=== PATIENT | female | born 1970 | race Caucasian/White ===

== ENCOUNTER 2019-04-23 06:46 | Emergency (ER) | payer OTHER ==
[~2019-04-23] VITALS: Ht 165.1 cm; Wt 110.7 kg
[2019-04-23] MEDS ORDERED: LEVO-T25 MCG PO (07:09)
[2019-04-23] MEDS ORDERED: OMEPRAZOLE 20 M20 M1 PO (07:10)
[2019-04-23] MEDS ORDERED: MOBIC7.5 MG PO (07:11)
[2019-04-23] MEDS ORDERED: PROZAC10 M1 PO (07:11)
[2019-04-23] MEDS ORDERED: APAP650 PO (07:11)
[2019-04-23 07:42] LABS: HEMATOCRIT 32.4 % (37.0-47.0); HEMOGLOBIN 10.1 gm/dL (12.0-15.0); MCH 24.1 pg (26.0-34.0); MCHC 31.1 g/dL (28.0-37.0); MCV 77.4 fL (80.0-100.0); RBC 4.19 mil/uL (4.20-5.00); RDW 14.9 % (10.5-14.5); WBC 4.5 thou/uL (4.0-11.0)
[2019-04-23 09:07] VITALS: BP 125/71
== END 2019-04-23 09:07 | disposition home or self-care (01) ==
LOC: ER 06:46
PROVIDERS: Emergency Medicine
DX: N93.8 Other specified abnormal uterine and vaginal bleeding (principal); D25.9 Leiomyoma of uterus, unspecified; E66.9 Obesity, unspecified; Z79.899 Other long term (current) drug therapy; Z98.84 Bariatric surgery status; Z90.89 Acquired absence of other organs

== ENCOUNTER 2019-06-27 10:28 | Emergency (ER) | payer OTHER ==
[~2019-06-27] VITALS: Ht 170.2 cm; Wt 117.9 kg
[~2019-06-27 10:28] MED LIST: APAP650 PO; LEVO-T25 MCG PO; MOBIC7.5 MG PO; OMEPRAZOLE 20 M20 M1 PO; PROZAC10 M1 PO
[2019-06-27] MEDS ORDERED: MEDROLDOSEPACK PO (14:25)
[2019-06-27] MEDS ORDERED: VALIUM2 MG PO (14:28)
[2019-06-27 15:14] VITALS: BP 154/71
== END 2019-06-27 15:14 | disposition home or self-care (01) ==
LOC: ER 10:28
DX: M54.10 Radiculopathy, site unspecified (principal); Z90.49 Acquired absence of other specified parts of digestive tract

== ENCOUNTER 2019-07-29 17:54 | Emergency (ER) | payer BC ==
[~2019-07-29] VITALS: Ht 165.1 cm; Wt 101.2 kg
[~2019-07-29 17:54] MED LIST changes: +MEDROLDOSEPACK PO; +VALIUM2 MG PO
[2019-07-29 18:46] LABS: ABSOLUTE NEUTROPHILS 4.3 thou/uL (1.4-8.2); BASOPHILS 0.9 % (0.0-2.0); EOSINOPHILS 1.1 % (0.0-3.0); HEMOGLOBIN 11.5 gm/dL (12.0-15.0); LYMPHOCYTES 34.9 % (24.0-44.0); MCH 23.1 pg (26.0-34.0); MCV 74.6 fL (80.0-100.0); MONOCYTES 7.5 % (1.0-8.0); PLATELET COUNT 473 thou/uL (150-400); POLYS 55.6 % (36.0-66.0); RBC 4.95 mil/uL (4.20-5.00); RDW 18.3 % (10.5-14.5); WBC 7.7 thou/uL (4.0-11.0)
[2019-07-29 18:54] LABS: CALCIUM 9.8 mg/dL (8.5-10.1); CREATININE 0.7 mg/dL (0.6-1.0); POTASSIUM 3.3 mmol/L (3.5-5.1)
[2019-07-29 18:59] LABS: ALBUMIN 4.2 g/dL (3.4-5.0); TOTAL BILIRUBIN 0.3 mg/dL (<0.1-1.0); TOTAL PROTEIN 8.5 g/dL (6.4-8.2)
[2019-07-29] MEDS ORDERED: BENTYL 20 MG TA20 M1 PO (19:14)
[2019-07-29] MEDS ORDERED: ZOFRAN ODT4 MG PO (19:14)
[2019-07-29 19:18] LABS: ANISOCYTOSIS 2+; HYPOCHROMASIA 1+; OVALOCYTES OCCASIONAL; PLATELET ESTIMATE INCREASED
[2019-07-29 20:47] LABS: URINE BILIRUBIN 1+ (Negative); URINE BLOOD TRACE (Negative); URINE CLARITY SL CLOUDY; URINE COLOR YELLOW; URINE GLUCOSE-RANDOM* NEGATIVE (Negative); URINE KETONES 1+ (Negative); URINE NITRITE-REFLEX NEGATIVE (Negative); URINE PROTEIN (DIPSTICK) TRACE (Negative); URINE SPECIFIC GRAVITY 1.025 (1.005-1.035); URINE UROBILINOGEN 0.2 E.U./dl (0.2-1.0)
[2019-07-29 20:49] LABS: URINE LEUKOCYTES-REFLEX 2+ (Negative)
[2019-07-29 20:50] LABS: ICTOTEST (BILI CONFIRMATORY) Negative (Negative)
[2019-07-29 20:52] LABS: MUCUS 4-6 Moderate strn/LPF (None Seen); SQUAMOUS >10 Many /LPF (0-3)
[2019-07-29 20:53] LABS: BACTERIA-REFLEX >30 Many /HPF (None Seen); CALCIUM OXALATE 4-10 Moderate /LPF (None Seen)
[2019-07-29 20:54] LABS: URINE RBC 0-2 Rare /HPF (0-2); URINE WBC-REFLEX 6-15 Few /HPF (0-5)
[2019-07-29 20:55] LABS: CASTS None Seen /LPF (None Seen)
[2019-07-29] MEDS ORDERED: KEFLEX500 M1 PO (21:06)
[2019-07-29 21:10] VITALS: BP 128/68
== END 2019-07-29 21:18 | disposition home or self-care (01) ==
LOC: ER 17:54
PROVIDERS: Nurse Practitioner Family
DX: N39.0 Urinary tract infection, site not specified (principal); R11.2 Nausea with vomiting, unspecified; R19.7 Diarrhea, unspecified; E87.6 Hypokalemia; Z98.84 Bariatric surgery status; Z79.899 Other long term (current) drug therapy